=== PATIENT | male | born 1955 | race Native Hawaiian/Other Pacific Islander ===

== ENCOUNTER 2018-03-14 12:03 | Emergency (ER) | payer BC, OTHER ==
[2018-03-14 12:04] VITALS: BMI 21.5
[2018-03-14 12:24] VITALS: RESP 16; TEMP 97.8; O2SAT 99
[2018-03-14 13:17] LABS: BASO % 0.3 % (0.0-2.0); EOS # 0.1 K/uL (0.0-0.7); EOS % 2.7 % (0.0-4.0); HEMOGLOBIN 13.6 g/dL (12.0-18.0); LYMPH # 0.8 K/uL (1.0-4.3); LYMPH % 19.2 % (20.0-40.0); MEAN CELL VOLUME 92.4 fl (80.0-94.0); MEAN CORPUSCULAR HEMOGLOBIN 32.6 pg (27.0-31.0); MEAN CORPUSCULAR HGB CONC 35.3 g/dL (33.0-37.0); MEAN PLATELET VOLUME 7.1 fl (7.2-11.7); MONO # 0.4 K/uL (0.0-0.8); MONO % 8.9 % (0.0-10.0); NEUT # 2.9 K/uL (1.8-7.0); NEUT % 68.9 % (50.0-75.0); RBC 4.17 Mil/uL (4.40-5.90); RED CELL DISTRIBUTION WIDTH 12.7 % (11.5-14.5); WHITE BLOOD COUNT 4.3 K/uL (4.8-10.8)
[2018-03-14 13:46] LABS: BLOOD UREA NITROGEN 16 mg/dl (9-20); CALCIUM 9.8 mg/dL (8.4-10.2); GFR NON-AFRICAN AMERICAN > 60
--- NOTE | 2018-03-14 14:11 | ED PDOC ---
HPI: Hypertension/Hypotension Time Seen by Provider: 03/14/18 12:35 Chief Complaint (Nursing): High Blood Pressure Chief Complaint (Provider): high blood pressure History Per: Patient History/Exam Limitations: no limitations Onset/Duration Of Symptoms: Days (x1) Current Symptoms Are (Timing): Still Present Associated Symptoms: Dizziness, Headache (mild), Other (nausea) Additional Complaint(s): Gerber Nice is a 63 year old male, with a past medical history of HTN, diabetes and hypercholesterolemia, who presents to the emergency department accompanied by son for evaluation of high blood pressure onset since yesterday. Patient is complaining of nausea, dizziness and a mild headache. Patient states his blood pressure this morning was 196/82, his baseline is in the 140s. Patient has been compliant with his blood pressure medications, last took Carvedilol this morning without resolution of symptoms. He reports similar episodes of hypertension in the past. He denies any fever, chills, chest pain or shortness of breath. No further medical complaints. [employer] Viraj Past Medical History Reviewed: Historical Data, Nursing Documentation, Vital Signs Vital Signs: Last Vital Signs Temp 97.8 F 03/14/18 12:21 Pulse 20 L 03/14/18 13:26 Resp 16 03/14/18 12:21 BP 185/82 H 03/14/18 13:26 Pulse Ox 99 03/14/18 12:21 - Medical History PMH: Diabetes, HTN, Hypercholesterolemia Denies: Chronic Kidney Disease - Surgical History Surgical History: No Surg Hx - Family History Family History: States: Stroke - Social History Ex-Smoker (has not smoked in the last 12 months): Yes Alcohol: None Drugs: Denies - Home Medications Home Medications: Ambulatory Orders Medication Instructions Recorded Aspirin 325 mg PO DAILY #0 tab 07/22/15 Carvedilol [Coreg Cr] 12.5 mg PO DAILY 07/22/15 Glimepiride [amaRYL] 4 mg PO BID 07/22/15 Insulin Glargine, Recombina 20 units SC HS 07/22/15 [Lantus] Insulin Lispro [Humalog] 7 units SC ACL 07/22/15 Ramipril [Altace] 10 mg PO BID 07/22/15 Simvastatin 40 mg PO DAILY 07/22/15 Sitagliptin Phos/Metformin HCl 1 tab PO BID 07/22/15 [Janumet Xr 50-1,000 mg Tablet] amLODIPine [Norvasc] 5 mg PO DAILY #30 tab 03/14/18 - Allergies Allergies/Adverse Reactions: Allergies Allergy/AdvReac Type Severity Reaction Status Date / Time No Known Allergies Allergy Verified 03/14/18 12:21 Review of Systems ROS Statement: Except As Marked, All Systems Reviewed And Found Negative Cardiovascular: Negative for: Chest Pain Respiratory: Negative for: Shortness of Breath Gastrointestinal: Positive for: Nausea Neurological: Positive for: Headache, Dizziness Physical Exam - Reviewed Nursing Documentation Reviewed: Yes Vital Signs Reviewed: Yes - Physical Exam Appears: Positive for: No Acute Distress Head Exam: Positive for: ATRAUMATIC, NORMOCEPHALIC Skin: Positive for: Normal Color, Warm, Dry Eye Exam: Positive for: Normal appearance, EOMI, PERRL Neck: Positive for: Painless ROM Cardiovascular/Chest: Positive for: Regular Rate, Rhythm. Negative for: Murmur Respiratory: Positive for: Normal Breath Sounds. Negative for: Respiratory Distress Gastrointestinal/Abdominal: Positive for: Normal Exam, Soft. Negative for: Tenderness Back: Positive for: Normal Inspection. Negative for: Vertebral Tenderness Extremity: Positive for: Normal ROM (upper and lower extremities). Negative for : Deformity, Swelling Neurologic/Psych: Positive for: Alert, Oriented, Gait (steady). Negative for: Motor/Sensory Deficits - Laboratory Results Result Diagrams: 03/14/18 12:57 03/14/18 12:57 - ECG ECG Rhythm: Positive for: Normal QRS, Normal ST Segment, Sinus Bradycardia Rate: 55 O2 Sat by Pulse Oximetry: 99 (RA) Pulse Ox Interpretation: Normal Medical Decision Making Medical Decision Making: Time: 12:35 Initial Impression: Hypertensive urgency, complications of HTN. r/o intracranial bleeding less likely Initial Plan: --Head w/o contrast [CT] --EKG --BMP --Troponin I --CBC w/ differential --Catapres 0.2mg PO --Reevaluation 14:12 CT Head FINDINGS: HEMORRHAGE: No intracranial hemorrhage. BRAIN: No-white matter differentiation is preserved. There is no mass, mass effect or abnormal extra-axial fluid collection. There is no territorial infarction. The midline sagittal structures are normal. VENTRICLES: There is mild age-related global parenchymal volume loss and proportionate enlargement of the ventricles and cortical sulci. CALVARIUM: Unremarkable. PARANASAL SINUSES: There is moderate mucosal thickening in the left posterior ethmoid air cells. The remaining included paranasal sinuses are predominantly clear. MASTOID AIR CELLS: Unremarkable as visualized. No inflammatory changes. OTHER FINDINGS: None. IMPRESSION: No acute intracranial abnormality. Mild age-related global parenchymal volume loss. 15:20 -Upon provider reevaluation patient is feeling better, is medically stable, and requires no further treatment in the ED at this time. Patient will be discharged home with Rx for Norvasc. Counseling was provided and all questions were answered regarding diagnosis and need for follow up with Dr. Cali. There is agreement to discharge plan. Return if symptoms persist or worsen. ----- Scribe Attestation: Documented by Jose Carr, acting as a scribe for Rohan Estevez MD. Provider Scribe Attestation: All medical record entries made by the Scribe were at my direction and personally dictated by me. I have reviewed the chart and agree that the record accurately reflects my personal performance of the history, physical exam, medical decision making, and the department course for this patient. I have also personally directed, reviewed, and agree with the discharge instructions and disposition. Disposition - Clinical Impression Clinical Impression: Bradycardia, sinus, Hypertension - Disposition Referrals: John Cali MD [Staff Provider] - Disposition: Routine/Home Disposition Time: 15:20 Condition: GOOD Additional Instructions: GERBER NICE, thank you for letting us take care of you today. Your provider was Rohan Estevez MD and you were treated for POSS HIGH BP, DIZZINESS. The emergency medical care you received today was directed at your acute symptoms. If you were prescribed any medication, please fill it and take as directed. It may take several days for your symptoms to resolve. Return to the Emergency Department if your symptoms worsen, do not improve, or if you have any other problems. Please contact your doctor or call one of the physicians/clinics you have been referred to that are listed on the Patient Visit Information form that is included in your discharge packet. Bring any paperwork you were given at discharge with you along with any medications you are taking to your follow up visit. Our treatment cannot replace ongoing medical care by a primary care provider outside of the emergency department. Thank you for allowing the [facility] team to be part of your care today. If you had an X-Ray or CT scan: A Radiologist will review the ED reading if any change in treatment is needed we will contact you. If you had a blood, urine, or wound culture: It will take several days for the results, if any change in treatment is needed we will contact you. If you had an STI test: It will take 48 hours for the results. Please call after 1 week if you have not heard back. Prescriptions: amLODIPine [Norvasc] 5 mg PO DAILY #30 tab Instructions: High Blood Pressure in Adults, Bradycardia (DC)
--- NOTE | 2018-03-14 14:14 | CT ---
Date of service: 03/14/2018 PROCEDURE: CT HEAD WITHOUT CONTRAST. HISTORY: Dizziness COMPARISON: 02/18/2009. TECHNIQUE: Axial computed tomography images were obtained through the head/brain without intravenous contrast. Radiation dose: Total exam DLP = 723.98 mGy-cm. This CT exam was performed using one or more of the following dose reduction techniques: Automated exposure control, adjustment of the mA and/or kV according to patient size, and/or use of iterative reconstruction technique. FINDINGS: HEMORRHAGE: No intracranial hemorrhage. BRAIN: No-white matter differentiation is preserved. There is no mass, mass effect or abnormal extra-axial fluid collection. There is no territorial infarction. The midline sagittal structures are normal. VENTRICLES: There is mild age-related global parenchymal volume loss and proportionate enlargement of the ventricles and cortical sulci. CALVARIUM: Unremarkable. PARANASAL SINUSES: There is moderate mucosal thickening in the left posterior ethmoid air cells. The remaining included paranasal sinuses are predominantly clear. MASTOID AIR CELLS: Unremarkable as visualized. No inflammatory changes. OTHER FINDINGS: None. IMPRESSION: No acute intracranial abnormality. Mild age-related global parenchymal volume loss.
[2018-03-14 14:57] VITALS: BP 153/72
[2018-03-14 15:22] VITALS: PULSE 55
--- NOTE | 2018-03-15 07:47 | CARD ---
APPROVED REPORT Date of service: 03/14/2018 EKG Measurement Heart [id number] <Conclusion> Likely sinus bradycardia. Baseline artifact Left ventricular hypertrophy with repolarization abnormality Abnormal ECG
== END 2018-03-14 15:31 | disposition home or self-care (01) ==
LOC: H.ER 12:03
DX: R00.1 Bradycardia, unspecified (principal); I10 Essential (primary) hypertension

== ENCOUNTER 2018-10-29 19:25 | Observation (INO) | payer OTHER ==
[2018-10-29 19:25] VITALS: BMI 21.5
[2018-10-29] MEDS ORDERED: Sodium Chloride 0.9% 1,000 ML IV STA (19:50)
[2018-10-29 20:12] LABS: VENOUS BLOOD GAS BASE EXCESS 3.7 mmol/L (0.0-2.0); VENOUS BLOOD GAS PCO2 49 mmHg (40-60); VENOUS BLOOD GAS PO2 38 mm/Hg (30-55); VENOUS BLOOD PH 7.39 (7.32-7.43)
[2018-10-29 20:17] LABS: BASO % 0.3 % (0.0-2.0); EOS # 0.2 K/uL (0.0-0.7); EOS % 1.9 % (0.0-4.0); HEMOGLOBIN 13.9 g/dL (12.0-18.0); LYMPH # 1.1 K/uL (1.0-4.3); LYMPH % 13.4 % (20.0-40.0); MEAN CELL VOLUME 92.5 fl (80.0-94.0); MEAN CORPUSCULAR HEMOGLOBIN 31.6 pg (27.0-31.0); MEAN CORPUSCULAR HGB CONC 34.2 g/dL (33.0-37.0); MEAN PLATELET VOLUME 7.5 fl (7.2-11.7); MONO # 0.6 K/uL (0.0-0.8); MONO % 6.9 % (0.0-10.0); NEUT # 6.3 K/uL (1.8-7.0); NEUT % 77.5 % (50.0-75.0); NRBC % 0.1 % (0.0-0.0); RBC 4.39 Mil/uL (4.40-5.90); RED CELL DISTRIBUTION WIDTH 12.5 % (11.5-14.5); WHITE BLOOD COUNT 8.1 K/uL (4.8-10.8)
[2018-10-29 20:25] LABS: INR 0.9; PROTHROMBIN TIME 10.4 Seconds (9.8-13.1)
[2018-10-29 20:27] LABS: PARTIAL THROMBOPLASTIN TIME 37.1 Seconds (25.6-37.1)
[2018-10-29 20:30] LABS: BLOOD UREA NITROGEN 14 mg/dl (9-20); CALCIUM 10.1 mg/dL (8.4-10.2); GFR NON-AFRICAN AMERICAN > 60
[2018-10-29 20:42] LABS: B-TYPE NATRIURETIC PEPTIDE 107 pg/ml (0-900)
--- NOTE | 2018-10-29 20:51 | ED PDOC ---
HPI: Hypertension/Hypotension Time Seen by Provider: 10/29/18 19:42 Chief Complaint (Nursing): High Blood Pressure Chief Complaint (Provider): High Blood Pressure History Per: Patient History/Exam Limitations: no limitations Onset/Duration Of Symptoms: Days (2x) Current Symptoms Are (Timing): Still Present Associated Symptoms: Chest Pain (and chest pressure), Dizziness, Other (nausea) Severity: Moderate Additional Complaint(s): 63 year old male with a past medical history of hypertension and diabetes presents to the ED with concerns of a high blood pressure. Patient states that last night he was started experiencing dizziness, vomiting, and chest pain/chest pressure. Patient states that he is concerned because he was checking his blood pressure at home, and his and son (both nurses) saw it and told him to come into the ED. Patient states that he took his morning medications and evening medications, but vomited the evening medications. Patient denies having any recent illnesses. Recent cardiac workup and workup for diabetes were both negative. PMD: Tawanda Cali MD Past Medical History Reviewed: Historical Data, Nursing Documentation, Vital Signs Vital Signs: Last Vital Signs Temp 97.7 F 10/29/18 19:28 Pulse 62 10/29/18 19:28 Resp 16 10/29/18 19:28 BP 209/84 H 10/29/18 19:28 Pulse Ox 97 10/29/18 19:28 SIGRID Report Viewed: Yes Primary Care Provider: Tawanda Head I - Medical History PMH: Diabetes, HTN, Hypercholesterolemia Denies: Chronic Kidney Disease - Family History Family History: States: Stroke - Social History Current smoker - smoking cessation education provided: No Ex-Smoker (has not smoked in the last 12 months): Yes Alcohol: None Drugs: Denies - Home Medications Home Medications: Ambulatory Orders Medication Instructions Recorded Carvedilol [Coreg Cr] 12.5 mg PO DAILY 07/22/15 Glimepiride [amaRYL] 4 mg PO BID 07/22/15 Insulin Glargine, Recombina 32 units SC HS 07/22/15 [Lantus] Ramipril [Altace] 10 mg PO BID 07/22/15 Simvastatin 40 mg PO DAILY 07/22/15 Sitagliptin Phos/Metformin HCl 1 tab PO BID 07/22/15 [Janumet Xr 50-1,000 mg Tablet] Aspirin [Aspirin Chewable] 81 mg PO HS 10/29/18 - Allergies Allergies/Adverse Reactions: Allergies Allergy/AdvReac Type Severity Reaction Status Date / Time No Known Allergies Allergy Verified 10/29/18 19:29 Review of Systems ROS Statement: Except As Marked, All Systems Reviewed And Found Negative Cardiovascular: Positive for: Chest Pain (/chest pressure) Gastrointestinal: Positive for: Nausea, Vomiting Neurological: Positive for: Dizziness Physical Exam - Reviewed Nursing Documentation Reviewed: Yes Vital Signs Reviewed: Yes - Physical Exam Appears: Positive for: Well, Non-toxic, No Acute Distress Head Exam: Positive for: ATRAUMATIC, NORMOCEPHALIC Skin: Positive for: Normal Color, Warm, Dry Eye Exam: Positive for: Normal appearance Neck: Positive for: Normal, Painless ROM, Supple Cardiovascular/Chest: Positive for: Regular Rate, Rhythm Respiratory: Positive for: Normal Breath Sounds Neurological/Psych: Positive for: Awake, Alert, Oriented (3x) - Laboratory Results Result Diagrams: 10/29/18 19:45 10/29/18 19:45 Lab Results: pO2 38 mm/Hg (30-55) 10/29/18 20:06 VBG pH 7.39 (7.32-7.43) 10/29/18 20:06 VBG pCO2 49 mmHg (40-60) 10/29/18 20:06 VBG HCO3 27.1 mmol/L 10/29/18 20:06 VBG Total CO2 31.2 mmol/L (22-28) H 10/29/18 20:06 VBG O2 Sat (Calc) 77.1 % (40-65) H 10/29/18 20:06 VBG Base Excess 3.7 mmol/L (0.0-2.0) H 10/29/18 20:06 VBG Potassium 4.3 mmol/L (3.6-5.2) 10/29/18 20:06 Sodium 134.0 mmol/L (132-148) 10/29/18 20:06 Chloride 98.0 mmol/L (98-107) 10/29/18 20:06 Glucose 179 mg/dL (75-110) H 10/29/18 20:06 Lactate 1.8 mmol/L (0.7-2.1) 10/29/18 20:06 FiO2 21.0 % 10/29/18 20:06 PT 10.4 Seconds (9.8-13.1) 10/29/18 19:45 INR 0.9 10/29/18 19:45 APTT 37.1 Seconds (25.6-37.1) 10/29/18 19:45 Troponin I < 0.0120 ng/mL (0.00-0.120) 10/29/18 19:45 NT-Pro-B Natriuret Pep 107 pg/ml (0-900) 10/29/18 19:45 - ECG O2 Sat by Pulse Oximetry: 97 (RA) Pulse Ox Interpretation: Normal Medical Decision Making Medical Decision Makin:42 Initial impression: Workup for nausea, dizziness, chest pain with high blood pressure. Initial plan: * labs including troponin I * IV fluids * zofran 4 mg IVP * reevalaution BP improved. Initial troponin negative. Pt high risk for MACE with DM and HTN and ongoing chest pain. Pt to be admitted to telemetry under Dr. Head with consult for cardiology placed. Repeat troponin scheduled for 4 hours after the original. Family and patient agree with plan. ------ ScribeAttestation: Documented bySheryl Headley, acting as a scribe for Sheryl Duncan MD. Provider ScribeAttestation: All medical record entries made by the Scribe were at my direction and personally dictated by me. I have reviewed the chart and agree that the record accurately reflects my personal performance of the history, physical exam, medical decision making, and the department course for this patient. I have also personally directed, reviewed, and agree with the discharge instructions and disposition. Disposition - Clinical Impression Clinical Impression: Chest pain, Hypertension - Disposition Disposition Time: 21:43 Condition: GUARDED
[2018-10-30 06:12] LABS: HEMOGLOBIN 13.2 g/dL (12.0-18.0); MEAN CORPUSCULAR HEMOGLOBIN 32.4 pg (27.0-31.0); MEAN CORPUSCULAR HGB CONC 35.6 g/dL (33.0-37.0); RBC 4.07 Mil/uL (4.40-5.90); RED CELL DISTRIBUTION WIDTH 12.5 % (11.5-14.5); WHITE BLOOD COUNT 6.8 K/uL (4.8-10.8)
[2018-10-30 06:20] LABS: BLOOD UREA NITROGEN 13 mg/dl (9-20); CALCIUM 9.3 mg/dL (8.4-10.2); GFR NON-AFRICAN AMERICAN > 60; HDL CHOLESTEROL 35 MG/DL (30-70)
[2018-10-30 06:31] LABS: LDL CHOLESTEROL 73 mg/dL (0-129)
[2018-10-30 08:19] VITALS: RESP 20
[2018-10-30] MEDS: GlipiZIDE 10 mg SR Tab PO SCH ×2 (09:05→16:23)
[2018-10-30] MEDS: Enoxaparin 40 mg Syringe SC SCH (09:05)
[2018-10-30] MEDS: Omega-3-Acid Ethyl Esters 1 GM Cap PO SCH ×2 (09:05→16:23)
--- NOTE | 2018-10-30 09:13 | CARD ---
APPROVED REPORT Date of service: 10/29/2018 EKG Measurement Heart [id number] <Conclusion> Sinus bradycardia Left ventricular hypertrophy with repolarization abnormality Abnormal ECG
--- NOTE | 2018-10-30 10:15 | CP.PCM.CON ---
History of Present Illness - History of Present Illness History of Present Illness: THE PATIENT IS A 63 YEAR OLD MALE WITH A HISTORY OF HYPERTENSION, HYPERLIPIDEMIA AND TYPE I DM. HE IS ON RAMIPRIL 10 MGS PO BID AND CARVEDILOL 12.5 MGS PO BID AT HOME. HE STATES THAT HE IS COMPLIANT WITH HIS MEDICATIONS BUT HE IS NOT ALWAYS COMPLIANT WITH HIS LOW SODIUM DIET. HE STATES THAT HE HAS BEEN EATING VERY SALTY FOOD FOR THE PAST WEEK. YESTEDAY HE STARTED GETTING A HEADACHE AND FELT VERY LIGHTHEADED. HIS BLOOD PRESSURE WAS ELEVATED AT SO HE CAME TO THE ER WHERE HIS BLOOD PRESSURE WAS FOUND TO BE VERY ELEVATED AT 209/84 SO HE WAS ADMITTED. SHE DENIES CHEST PAIN OR SOB AT THE PRESENT TIME. I WAS ASKED TO SEE HIM BY DR BERG. Past Patient History - Past Medical History & Family History Past Medical History?: No - Past Social History Smoking Status: Former Smoker - CARDIAC Hx Cardiac Disorders: Yes Hx Angina: Yes Hx Hypercholesterolemia: Yes Hx Hypertension: Yes - PULMONARY Hx Respiratory Disorders: No - NEUROLOGICAL Hx Neurological Disorder: No - HEENT Hx HEENT Problems: No - RENAL Hx Chronic Kidney Disease: No - ENDOCRINE/METABOLIC Hx Endocrine Disorders: Yes (DM) Hx Diabetes Mellitus Type 2: Yes - HEMATOLOGICAL/ONCOLOGICAL Hx Blood Disorders: No Hx AIDS: No Hx Blood Transfusions: No Hx Human Immunodeficiency Virus (HIV): No - INTEGUMENTARY Hx Dermatological Problems: No - MUSCULOSKELETAL/RHEUMATOLOGICAL Hx Musculoskeletal Disorders: No Hx Falls: No - GASTROINTESTINAL Hx Gastrointestinal Disorders: No - GENITOURINARY/GYNECOLOGICAL Hx Genitourinary Disorders: No - PSYCHIATRIC Hx Psychophysiologic Disorder: No Hx Substance Use: No - SURGICAL HISTORY Hx Surgeries: No - ANESTHESIA Hx Anesthesia: No Hx Anesthesia Reactions: No Meds Allergies/Adverse Reactions: Allergies Allergy/AdvReac Type Severity Reaction Status Date / Time No Known Allergies Allergy Verified 10/29/18 19:29 - Medications Medications: Current Medications Aspirin (Aspirin Chewable) 81 mg PO HS [facility] Atorvastatin Calcium (Lipitor) 20 mg PO HS [facility] Carvedilol (Coreg) 12.5 mg PO BID [facility] Last Admin: 10/30/18 09:05 Dose: Not Given Enoxaparin Sodium (Lovenox) 40 mg SC DAILY [facility]; Protocol Last Admin: 10/30/18 09:05 Dose: 40 mg Glipizide (Glucotrol Xl) 10 mg PO BIDWM [facility] Last Admin: 10/30/18 09:05 Dose: 10 mg Insulin Detemir (Levemir) 32 units SC [facility] Insulin Human Regular (Humulin R) 0 units SC ACCU-CHECK [facility]; Protocol Metformin HCl (Glucophage) 500 mg PO BIDWM [facility] Last Admin: 10/30/18 09:06 Dose: 500 mg [id number] Ethyl Esters (Lovaza) 1 gm PO BID [facility] Last Admin: 10/30/18 09:05 Dose: 1 gm Ramipril (Altace) 10 mg PO BID [facility] Last Admin: 10/30/18 09:04 Dose: 10 mg Sitagliptin Phosphate (Januvia) 50 mg PO BID [facility] Last Admin: 10/30/18 09:05 Dose: 50 mg Physical Exam - Respiratory Exam Respiratory Exam: Clear to Auscultation Bilateral - Cardiovascular Exam Cardiovascular Exam: Bradycardia, REGULAR RHYTHM, +S1, +S2 - Extremities Exam Additional comments: NO LE EDEMA - Additional Findings Additional findings: EKG SINUS, R 59, LVE WITH ST-T CHANGES TROPONIN NORMAL X 3 Results - Vital Signs Recent Vital Signs: Last Vital Signs Temp 98.0 F 10/30/18 08:18 Pulse 51 L 10/30/18 09:05 Resp 20 10/30/18 08:18 BP 192/84 H 10/30/18 09:05 Pulse Ox 96 10/30/18 08:18 - Labs Result Diagrams: 10/30/18 04:45 10/30/18 04:45 Labs: Laboratory Results - last 24 hr 10/29/18 10/29/18 10/29/18 19:45 19:45 19:45 WBC 8.1 D RBC 4.39 L Hgb 13.9 Hct 40.6 MCV 92.5 MCH 31.6 H MCHC 34.2 RDW 12.5 Plt Count 184 MPV 7.5 Neut % (Auto) 77.5 H Lymph % (Auto) 13.4 L Rhea % (Auto) 6.9 Eos % (Auto) 1.9 Baso % (Auto) 0.3 Neut # (Auto) 6.3 Lymph # (Auto) 1.1 Rhea # (Auto) 0.6 Eos # (Auto) 0.2 Baso # (Auto) 0.0 PT INR APTT pO2 VBG pH VBG pCO2 VBG HCO3 VBG Total CO2 VBG O2 Sat (Calc) VBG Base Excess VBG Potassium Glucose Lactate FiO2 Sodium 136 Potassium 4.5 Chloride 96 L Carbon Dioxide 28 Anion Gap 17 BUN 14 Creatinine 1.0 Est GFR ( Amer) > 60 Est GFR (Non-Af Amer) > 60 POC Glucose (mg/dL) Random Glucose 174 H Calcium 10.1 Troponin I < 0.0120 NT-Pro-B Natriuret Pep 107 Triglycerides Cholesterol LDL Cholesterol Direct HDL Cholesterol Venous Blood Potassium Blood Type A POSITIVE Antibody Screen Negative BBK History Checked Patient has bt 10/29/18 10/29/18 10/29/18 19:45 20:06 20:22 WBC RBC Hgb Hct MCV MCH MCHC RDW Plt Count MPV Neut % (Auto) Lymph % (Auto) Rhea % (Auto) Eos % (Auto) Baso % (Auto) Neut # (Auto) Lymph # (Auto) Rhea # (Auto) Eos # (Auto) Baso # (Auto) PT 10.4 INR 0.9 APTT 37.1 pO2 38 VBG pH 7.39 VBG pCO2 49 VBG HCO3 27.1 VBG Total CO2 31.2 H VBG O2 Sat (Calc) 77.1 H VBG Base Excess 3.7 H VBG Potassium 4.3 Glucose 179 H Lactate 1.8 FiO2 21.0 Sodium 134.0 Potassium Chloride 98.0 Carbon Dioxide Anion Gap BUN Creatinine Est GFR ( Amer) Est GFR (Non-Af Amer) POC Glucose (mg/dL) 174 H Random Glucose Calcium Troponin I NT-Pro-B Natriuret Pep Triglycerides Cholesterol LDL Cholesterol Direct HDL Cholesterol Venous Blood Potassium 4.3 Blood Type Antibody Screen BBK History Checked 10/29/18 10/30/18 10/30/18 23:25 04:45 04:45 WBC 6.8 RBC 4.07 L Hgb 13.2 Hct 37.1 MCV 91.0 MCH 32.4 H MCHC 35.6 RDW 12.5 Plt Count 191 MPV Neut % (Auto) Lymph % (Auto) Rhea % (Auto) Eos % (Auto) Baso % (Auto) Neut # (Auto) Lymph # (Auto) Rhea # (Auto) Eos # (Auto) Baso # (Auto) PT INR APTT pO2 VBG pH VBG pCO2 VBG HCO3 VBG Total CO2 VBG O2 Sat (Calc) VBG Base Excess VBG Potassium Glucose Lactate FiO2 Sodium 138 Potassium 4.0 Chloride 100 Carbon Dioxide 27 Anion Gap 15 BUN 13 Creatinine 1.0 Est GFR ( Amer) > 60 Est GFR (Non-Af Amer) > 60 POC Glucose (mg/dL) Random Glucose 174 H Calcium 9.3 Troponin I < 0.0120 < 0.0120 NT-Pro-B Natriuret Pep Triglycerides 125 Cholesterol 131 LDL Cholesterol Direct 73 HDL Cholesterol 35 Venous Blood Potassium Blood Type Antibody Screen BBK History Checked 10/30/18 05:25 WBC RBC Hgb Hct MCV MCH MCHC RDW Plt Count MPV Neut % (Auto) Lymph % (Auto) Rhea % (Auto) Eos % (Auto) Baso % (Auto) Neut # (Auto) Lymph # (Auto) Rhea # (Auto) Eos # (Auto) Baso # (Auto) PT INR APTT pO2 VBG pH VBG pCO2 VBG HCO3 VBG Total CO2 VBG O2 Sat (Calc) VBG Base Excess VBG Potassium Glucose Lactate FiO2 Sodium Potassium Chloride Carbon Dioxide Anion Gap BUN Creatinine Est GFR ( Amer) Est GFR (Non-Af Amer) POC Glucose (mg/dL) 173 H Random Glucose Calcium Troponin I NT-Pro-B Natriuret Pep Triglycerides Cholesterol LDL Cholesterol Direct HDL Cholesterol Venous Blood Potassium Blood Type Antibody Screen BBK History Checked Assessment & Plan - Assessment and Plan (Free Text) Assessment: HYPERTENSION-UNCONTROLLED HYPERLIPIDEMIA DM Plan: THE PATIENT WAS ADMITTED TO ON TELEMETRY HE RECEIVED IV CARDIZEM IN THE ER AND 10 MGS OF RAMIPRIL TODAY RAMIPRIL WILL BE STOPPED AND HE WILL BE STARTED ON [place] AND FUROSEMIDE CONTINUE CARVEDILOL, ATORVASTATIN, LOVENOX AND DM MEDS ECHOCARDIOGRAM PATIENT DISCUSSED WITH SON AND DR BERG
[2018-10-30] MEDS: Insulin Regular 100 units/ml SC SCH ×4 (10:38→23:16)
--- NOTE | 2018-10-30 11:35 | CT ---
Date of service: 10/30/2018 PROCEDURE: CT HEAD WITHOUT CONTRAST. HISTORY: HEADACHES AND HYPERTENSION COMPARISON: Noncontrast head CT 03/14/2018. TECHNIQUE: Axial computed tomography images were obtained through the head/brain without intravenous contrast. Radiation dose: Total exam DLP = 817.28 mGy-cm. This CT exam was performed using one or more of the following dose reduction techniques: Automated exposure control, adjustment of the mA and/or kV according to patient size, and/or use of iterative reconstruction technique. FINDINGS: HEMORRHAGE: No intracranial hemorrhage. BRAIN: Stable limited diffuse cerebral atrophy with remaining intracranial space stable in the interval. No definite acute intracranial findings appreciable. VENTRICLES: Unremarkable. No hydrocephalus. CALVARIUM: Unremarkable. PARANASAL SINUSES: Unremarkable as visualized. No significant inflammatory changes. MASTOID AIR CELLS: Unremarkable as visualized. No inflammatory changes. OTHER FINDINGS: None. IMPRESSION: Stable limited age related neuro degenerative change identified primarily manifest by a limited diffuse cerebral atrophy.
--- NOTE | 2018-10-30 11:40 | HP ---
HISTORY OF PRESENT ILLNESS: Mr. Finn is a 63-year-old male who was admitted via the emergency room because of elevated blood pressure, dizziness, palpitations for several days prior to presentation, worse on the day of admission. PAST MEDICAL HISTORY: He has a past medical history of hypertension, diabetes mellitus, and hyperlipidemia and has not followed up with any primary care physician for a while. He indicates that he saw me in the office several years ago, but has followed up with Dr. Reid and Dr. Cali, but speaking with Dr. Cali, the patient has not been to the office for years. FAMILY HISTORY: Noncontributory. SOCIAL HISTORY: He indicates that he quit smoking, but he is not exactly sure how long ago that was. REVIEW OF SYSTEMS: Remarkable for swelling of legs and palpitations with headaches. PHYSICAL EXAMINATION: GENERAL: The patient is alert and oriented, appears to be still in some distress because of headaches. VITAL SIGNS: Blood pressure of 209/84, pulse of 62, respiratory rate 16, he is afebrile, O2 sat 97% on room air. SKIN: Shows fair turgor. Pupils are equal, reactive to light and accommodation. Mouth shows fair hygiene. JVP flat. LUNGS: Clear. HEART: Regular, but 50 per minute. ABDOMEN: Soft, nontender, no organomegaly. EXTREMITIES: Trace pitting pedal edema. CENTRAL NERVOUS SYSTEM: Grossly intact. LABORATORY DATA: Has been reviewed. IMPRESSION: Hypertensive urgency secondary to poor compliance to medication and diet; diabetes mellitus, poorly controlled; history of hyperlipidemia. PLAN: The patient has been admitted to telemetry for observation. We will monitor blood pressure closely and appropriately control it. We will also monitor blood sugar. Cardiology consult already called. We will obtain CT scan of the brain because of persistent headaches. Further therapy will depend on findings. Tawanda Head MD
--- NOTE | 2018-10-30 19:10 | CARD ---
APPROVED REPORT Date of service: 10/30/2018 EXAM: Two-dimensional and M-mode echocardiogram with Doppler and color Doppler. Other Information Quality : GoodRhythm : NSR INDICATION Hypertension/HCVD 2D DIMENSIONS IVSd1.17 (0.7-1.1cm)LVDd4.00 (3.9-5.9cm) LVOT Diameter2.14 (1.8-2.4cm)PWd1.15 (0.7-1.1cm) IVSs1.48 (0.8-1.2cm)LVDs2.62 (2.5-4.0cm) FS (%) 34.5 %PWs1.65 (0.8-1.2cm) M-Mode DIMENSIONS Left Atrium (MM)4.04 (2.5-4.0cm)IVSd1.54 (0.7-1.1cm) Aortic Root3.40 (2.2-3.7cm)LVDd4.25 (4.0-5.6cm) Aortic Cusp Exc.1.72 (1.5-2.0cm)PWd1.49 (0.7-1.1cm) IVSs1.98 cmFS (%) 38 % LVDs2.65 (2.0-3.8cm)PWs2.03 cm Aortic Valve AoV Peak Pkweyipe474.2cm/sAoV VTI28.9cmAO Peak GR.8mmHg LVOT Peak Tcojinrq342.5cm/sLVOT VTI23.36cmAO Mean GR.4mmHg ALEJANDRO (VMAX)1.97na2PZS (VTI)1.63cm2 Mitral Valve MV E Edqjkeqf16.2cm/sMV DECEL TXRW370eyXR A Xuhcanba96.1cm/s MV QEH30bqR/A ratio1.2MVA (PHT)2.75cm2 TDI Lateral E' Peak V9.94cm/sMedial E' Peak V6.03cm/sE/Lateral E'6.0 E/Medial E'9.8 LEFT VENTRICLE The left ventricle is normal size. There is mild concentric left ventricular hypertrophy. The left ventricular systolic function is normal. The estimated ejection fraction is 55-60% No regional wall motion abnormalities noted.. Transmitral Doppler flow pattern is Grade II-pseudonormal filling dynamics. No left ventricle thrombus noted on this study. There is no ventricular septal defect visualized. There is no left ventricular aneurysm. There is no mass noted in the left ventricle. RIGHT VENTRICLE The right ventricle is normal size. There is normal right ventricular wall thickness. The right ventricular systolic function is normal. ATRIA The left atrium is mildly dilated. The right atrium size is normal. The interatrial septum is intact with no evidence for an atrial septal defect. AORTIC VALVE The aortic valve is normal in structure. No aortic regurgitation is present. There is no aortic valvular stenosis. There is no aortic valvular vegetation. MITRAL VALVE The mitral valve is normal in structure. There is no evidence of mitral valve prolapse. There is no mitral valve stenosis. There is no mitral valve regurgitation noted. TRICUSPID VALVE The tricuspid valve is normal in structure. There is no tricuspid valve regurgitation noted. There is no tricuspid valve prolapse or vegetation. There is no tricuspid valve stenosis. PULMONIC VALVE The pulmonary valve is normal in structure. There is trace pulmonic valvular regurgitation. There is no pulmonic valvular stenosis. GREAT VESSELS The aortic root is normal in size. The ascending aorta is normal in size. The pulmonary artery is normal. The IVC is not well visualized. PERICARDIAL EFFUSION There is no pericardial effusion. There is no pleural effusion. <Conclusion> There is mild concentric left ventricular hypertrophy. The estimated ejection fraction is 55-60% Transmitral Doppler flow pattern is Grade II-pseudonormal filling dynamics. The left atrium is mildly dilated. There is no tricuspid valve regurgitation noted. The IVC is not well visualized.
[2018-10-30] MEDS ORDERED: Insulin Detemir 100 Units/ml Inj SC SCH (22:00)
[2018-10-31 05:10] VITALS: O2SAT 97
[2018-10-31] MEDS: Insulin Regular 100 units/ml SC SCH (06:39)
[2018-10-31 08:11] VITALS: BP 156/73; PULSE 54; TEMP 98
[2018-10-31] MEDS: Omega-3-Acid Ethyl Esters 1 GM Cap PO SCH (08:57)
[2018-10-31] MEDS: Enoxaparin 40 mg Syringe SC SCH (08:57)
[2018-10-31] MEDS: GlipiZIDE 10 mg SR Tab PO SCH (08:58)
--- NOTE | 2018-10-31 09:23 | CP.PCM.DIS ---
Provider - Provider Date of Admission: 10/29/18 21:43 Attending physician: Tawanda Berg MD Consults: 10/29/18 22:05 Cardiology Consult Stat Comment: Consulting Provider: John Cali Consulting Physician: John Cali Reason for Consult: HTN and CP Time Spent in preparation of Discharge (in minutes): 30 Diagnosis - Discharge Diagnosis (1) Non-compliance Status: Acute (2) Hypertension Status: Acute (3) Bradycardia, sinus Status: Acute (4) Diabetes 1.5, managed as type 2 Status: Acute Hospital Course - Lab Results Lab Results: Most Recent Lab Values WBC 6.8 K/uL (4.8-10.8) 10/30/18 04:45 RBC 4.07 Mil/uL (4.40-5.90) L 10/30/18 04:45 Hgb 13.2 g/dL (12.0-18.0) 10/30/18 04:45 Hct 37.1 % (35.0-51.0) 10/30/18 04:45 MCV 91.0 fl (80.0-94.0) 10/30/18 04:45 MCH 32.4 pg (27.0-31.0) H 10/30/18 04:45 MCHC 35.6 g/dL (33.0-37.0) 10/30/18 04:45 RDW 12.5 % (11.5-14.5) 10/30/18 04:45 Plt Count 191 K/uL (130-400) 10/30/18 04:45 MPV 7.5 fl (7.2-11.7) 10/29/18 19:45 Neut % (Auto) 77.5 % (50.0-75.0) H 10/29/18 19:45 Lymph % (Auto) 13.4 % (20.0-40.0) L 10/29/18 19:45 [place] % (Auto) 6.9 % (0.0-10.0) 10/29/18 19:45 Eos % (Auto) 1.9 % (0.0-4.0) 10/29/18 19:45 Baso % (Auto) 0.3 % (0.0-2.0) 10/29/18 19:45 Neut # (Auto) 6.3 K/uL (1.8-7.0) 10/29/18 19:45 Lymph # (Auto) 1.1 K/uL (1.0-4.3) 10/29/18 19:45 [place] # (Auto) 0.6 K/uL (0.0-0.8) 10/29/18 19:45 Eos # (Auto) 0.2 K/uL (0.0-0.7) 10/29/18 19:45 Baso # (Auto) 0.0 K/uL (0.0-0.2) 10/29/18 19:45 PT 10.4 Seconds (9.8-13.1) 10/29/18 19:45 INR 0.9 10/29/18 19:45 APTT 37.1 Seconds (25.6-37.1) 10/29/18 19:45 pO2 38 mm/Hg (30-55) 10/29/18 20:06 VBG pH 7.39 (7.32-7.43) 10/29/18 20:06 VBG pCO2 49 mmHg (40-60) 10/29/18 20:06 VBG HCO3 27.1 mmol/L 10/29/18 20:06 VBG Total CO2 31.2 mmol/L (22-28) H 10/29/18 20:06 VBG O2 Sat (Calc) 77.1 % (40-65) H 10/29/18 20:06 VBG Base Excess 3.7 mmol/L (0.0-2.0) H 10/29/18 20:06 VBG Potassium 4.3 mmol/L (3.6-5.2) 10/29/18 20:06 Sodium 134.0 mmol/L (132-148) 10/29/18 20:06 Chloride 98.0 mmol/L (98-107) 10/29/18 20:06 Glucose 179 mg/dL (75-110) H 10/29/18 20:06 Lactate 1.8 mmol/L (0.7-2.1) 10/29/18 20:06 FiO2 21.0 % 10/29/18 20:06 Sodium 138 mmol/l (132-148) 10/30/18 04:45 Potassium 4.0 MMOL/L (3.6-5.0) 10/30/18 04:45 Chloride 100 mmol/L (98-107) 10/30/18 04:45 Carbon Dioxide 27 mmol/L (22-30) 10/30/18 04:45 Anion Gap 15 (10-20) 10/30/18 04:45 BUN 13 mg/dl (9-20) 10/30/18 04:45 Creatinine 1.0 mg/dl (0.8-1.5) 10/30/18 04:45 Est GFR ( Amer) > 60 10/30/18 04:45 Est GFR (Non-Af Amer) > 60 10/30/18 04:45 POC Glucose (mg/dL) 247 mg/dL (65-110) H 10/30/18 21:40 Random Glucose 174 mg/dL (75-110) H 10/30/18 04:45 Calcium 9.3 mg/dL (8.4-10.2) 10/30/18 04:45 Troponin I < 0.0120 ng/mL (0.00-0.120) 10/30/18 04:45 NT-Pro-B Natriuret Pep 107 pg/ml (0-900) 10/29/18 19:45 Triglycerides 125 mg/DL (0-149) 10/30/18 04:45 Cholesterol 131 mg/dL (0-199) 10/30/18 04:45 LDL Cholesterol Direct 73 mg/dL (0-129) 10/30/18 04:45 HDL Cholesterol 35 MG/DL (30-70) 10/30/18 04:45 Venous Blood Potassium 4.3 mmol/L (3.6-5.2) 10/29/18 20:06 Blood Type A POSITIVE 10/29/18 19:45 Antibody Screen Negative 10/29/18 19:45 BBK History Checked Patient has bt 10/29/18 19:45 - Hospital Course Hospital Course: CLINICALLY IMPROVED HEADACHES RESOLVED 63 YR OLD MALE ADMITTED WITH HEADACHES,PALPITATIONS AND UNCONTROLLED HYPERTENSION. HOSPITAL COURSE WAS UNREMARKABLE AND BP IMPROVED WITH ADJUSTMENT OF MEDS. CT SCAN OF BRAIN AND ECHOCARDIOGRAM WERE UNREMARKABLE PT WILL BE DISCHARGED HOME TO FOLLOW UP WITH DR BERG IN OFFICE Discharge Exam - Head Exam Head Exam: ATRAUMATIC, NORMOCEPHALIC - Eye Exam Eye Exam: EOMI, Normal appearance, PERRL Pupil Exam: NORMAL ACCOMODATION, PERRL - GI/Abdominal Exam GI & Abdominal Exam: Normal Bowel Sounds - Rectal Exam Rectal Exam: NORMAL INSPECTION - Neurological Exam Neurological exam: Alert, CN II-XII Intact, Normal Gait, Oriented x3, Reflexes Normal - Psychiatric Exam Psychiatric exam: Normal Affect, Normal Mood - Skin Skin Exam: Dry, Intact, Normal Color, Warm Discharge Plan - Follow Up Plan Condition: GUARDED Disposition: HOME/ ROUTINE Additional Instructions: FOLLOW UP WITH DR BERG IN 1 WEEK
--- NOTE | 2018-10-31 10:23 | CP.PCM.PN ---
Subjective - Date & Time of Evaluation Date of Evaluation: 10/31/18 Time of Evaluation: 09:15 - Subjective Subjective: NO CHEST PAIN OR SOB Objective - Vital Signs/Intake and Output Vital Signs (last 24 hours): Temp Pulse Resp BP Pulse Ox 98.0 F 54 L 20 156/73 H 97 10/31/18 08:10 10/31/18 08:58 10/31/18 08:10 10/31/18 08:58 10/31/18 08:10 - Medications Medications: Current Medications Acetaminophen (Tylenol 325mg Tab) 650 mg PO Q4 PRN PRN Reason: Headache Last Admin: 10/30/18 21:28 Dose: 650 mg Aspirin (Aspirin Chewable) [address] [facility] Last Admin: 10/30/18 21:30 Dose: 81 mg Atorvastatin Calcium (Lipitor) [address] [facility] Last Admin: 10/30/18 21:31 Dose: 20 mg Carvedilol (Coreg) 12.5 mg PO BID [facility] Last Admin: 10/31/18 08:58 Dose: 12.5 mg Enoxaparin Sodium (Lovenox) 40 mg SC DAILY [facility]; Protocol Last Admin: 10/31/18 08:57 Dose: 40 mg Furosemide (Lasix) 40 mg PO DAILY [facility] Last Admin: 10/31/18 08:57 Dose: 40 mg Glipizide (Glucotrol Xl) 10 mg PO BIDWM [facility] Last Admin: 10/31/18 08:58 Dose: 10 mg Insulin Detemir (Levemir) [address] [facility] Last Admin: 10/30/18 21:30 Dose: 32 u Insulin Human Regular (Humulin R) 0 units SC ACCU-CHECK [facility]; Protocol Last Admin: 10/31/18 06:39 Dose: 2 units Losartan Potassium (Cozaar) 50 mg PO DAILY [facility] Last Admin: 10/31/18 08:57 Dose: 50 mg Metformin HCl (Glucophage) 500 mg PO BIDWM [facility] Last Admin: 10/31/18 08:57 Dose: 500 mg Zefko-3-Lidw Ethyl Esters (Lovaza) 1 gm PO BID [facility] Last Admin: 10/31/18 08:57 Dose: 1 gm Sitagliptin Phosphate (Januvia) 50 mg PO BID [facility] Last Admin: 10/31/18 08:58 Dose: 50 mg - Labs Labs: 10/30/18 04:45 05/06/19 04:45 PT 10.4 Seconds (9.8-13.1) 10/29/18 19:45 INR 0.9 10/29/18 19:45 APTT 37.1 Seconds (25.6-37.1) 10/29/18 19:45 - Respiratory Exam Respiratory Exam: Clear to Ausculation Bilateral - Cardiovascular Exam Cardiovascular Exam: REGULAR RHYTHM, +S1, +S2 - Extremities Exam Additional comments: NO LE EDEMA - Additional Findings Additional findings: GENERATOR OPERATOR STRAIGHT BEVEL GEAR NSR ECHO LVEF OF 55-60% BLOOD PRESSURES MUCH IMPROVED Assessment and Plan - Assessment and Plan (Free Text) Assessment: HYPERTENSION HYPERLIPIDEMIA DM Plan: FOR DISCHARGE TO HOME TODAY CONTINUE LOSARTAN, CARVEDILOL, ASPIRIN, ATORVASTATIN, DM MEDS PATIENT ASKED TO MAKE APPT TO SEE ME IN I-2 WEEKS
== END 2018-10-31 10:26 | disposition home or self-care (01) ==
LOC: H.ER 19:25 → H.ERHOLD 21:43 → H.TEL 10-30
PROVIDERS: ADMIT Internal Medicine Pulmonary Disease; ATTEND Internal Medicine Pulmonary Disease
DX: I16.0 Hypertensive urgency (principal); E13.65 Other specified diabetes mellitus with hyperglycemia; Z82.49 Family history of ischemic heart disease and other diseases of the circulatory system; Z79.4 Long term (current) use of insulin; Z87.891 Personal history of nicotine dependence; Z91.19 Patient's noncompliance with other medical treatment and regimen; Z79.899 Other long term (current) drug therapy; R00.1 Bradycardia, unspecified; R00.2 Palpitations; R07.89 Other chest pain; E78.00 Pure hypercholesterolemia, unspecified; E78.5 Hyperlipidemia, unspecified; I10 Essential (primary) hypertension
CPT/HCPCS: 36415; 70450; 80048; 80061; 82803; 82948; 83880; 84484; 85025; 85027; 85610; 85730; 86850; 86900; 93005; 93306; 96372; 96374; 96375; 96376; 99285; G0378; J1650; J1940; J2405; J7030